=== PATIENT | female | born 1945 | race African-American/Black ===

== ENCOUNTER 2017-02-06 23:47 | Inpatient (IN) | payer MEDICARE, MEDICAID ==
[~2017-02-06] VITALS: Ht 175.3 cm; Wt 56.7 kg
[2017-02-07] MEDS ORDERED: ONDANSETRON HCL 4MG/2ML VIAL IV STA (00:23)
[2017-02-07] MEDS ORDERED: AZITHROMYCIN 500 MG in DEXT 5% WATER 250 ML IV ONE (00:30)
[2017-02-07] MEDS ORDERED: SODIUM CHLORIDE 0.9% 1000ML BAG (SEPSIS BOLUS) IV ONE (00:30)
[2017-02-07] MEDS ORDERED: CEFTRIAXONE 1 G PREMIX 50 ML IV ONE (00:30)
[2017-02-07 00:48] LABS: BASOPHILS % 0.5 % (0.0-2.0); EOSINOPHILS % 0.1 % (0.0-5.0); HEMOGLOBIN. 10.3 g/dL (12.0-16.0); MEAN CORPUSCULAR HEMOGLOBIN 32.3 pg (28.0-32.0); MEAN CORPUSCULAR VOLUME 94.5 fL (81.0-99.0); MEAN PLATELET VOLUME 7.1 fl (7.4-10.4); MONOCYTES % 7.6 % (2.0-8.0); NEUTROPHILS % 78.8 % (40.0-76.0); PLATELET 262 x1000/uL (130-400); RED BLOOD CELL COUNT 3.17 mill/uL (4.2-5.4)
[2017-02-07 00:58] LABS: BG BASE EXCESS 2.6 mmol/L (-2.0-2.0); BG CARBOXYHEMOGLOBIN 0.9 % (0.5-1.5); BG DEOXYHEMOGLOBIN 0.7 % (0.0-5.0); BG FRACTION INSPIRED OXYGEN 28; BG HCO3 ACT 25.7 mmol/L (22.0-26.0); BG METHEMOGLOBIN 0.1 % (0.0-1.5); BG OXYGEN SATURATION 99.3 % (92.0-98.5); BG OXYHEMOGLOBIN 98.3 % (94.0-97.0); BG PCO2 35.2 mmHg (35.0-45.0); BG PH 7.482 (7.350-7.450); BG PO2 158.5 mmHg (75.0-100.0); BG SAMPLE SITE RIGHT RADIAL; BG TOTAL HEMOGLOBIN 15.3 g/dL (12.0-18.0); BG VENT MODE NASAL CANNULA
[2017-02-07 01:00] LABS: CARBON DIOXIDE 28 mEq/L (21-32); CHLORIDE 103 mEq/L (98-107)
[2017-02-07 02:24] LABS: CLARITY URINE TURBID (CLEAR); COLOR URINE YELLOW (YELLOW); KETONES URINE TRACE (NEGATIVE); LEUKOCYTE ESTERASE URINE 3+ (NEGATIVE); NITRITE URINE POSITIVE (NEGATIVE); OCCULT BLOOD URINE 2+ (NEGATIVE); PH URINE 5.5 (4.5-8.0); PROTEIN URINE 2+ (NEGATIVE); SPECIFIC GRAVITY URINE 1.019 (1.005-1.030)
[2017-02-07] MEDS ORDERED: ACETAMINOPHEN 650MG SUPP PR ONE (02:45)
[2017-02-07] MEDS ORDERED: ATOR20TA65 PO (06:33)
[2017-02-07] MEDS ORDERED: AMLO2.5T45 PO (06:33)
[2017-02-07] MEDS ORDERED: ACET-2128 GT (06:33)
[2017-02-07] MEDS ORDERED: DIPH25TA24 GT (06:33)
[2017-02-07] MEDS ORDERED: BISA-81 RC (06:33)
[2017-02-07] MEDS ORDERED: SOD133EN RC (06:33)
[2017-02-07] MEDS ORDERED: LOV40 SQ (06:33)
[2017-02-07] MEDS ORDERED: MAGN800O GT (06:48)
[2017-02-07] MEDS ORDERED: METO-539 PO (06:48)
[2017-02-07] MEDS ORDERED: LORA1TAB GT (06:48)
[2017-02-07] MEDS ORDERED: PHEN100O2 GT (06:48)
[2017-02-07] MEDS ORDERED: MAGN400C GT (06:48)
[2017-02-07] MEDS ORDERED: POTA10TA15 GT (06:48)
[2017-02-07] MEDS ORDERED: SPIR25TA4 GT (06:48)
[2017-02-07] MEDS ORDERED: OR220 GT (06:48)
[2017-02-07] MEDS ORDERED: PANT40SU2 GT (06:48)
[2017-02-07] MEDS ORDERED: ASCO-339 GT (06:48)
[2017-02-07] MEDS ORDERED: SERT25TA74 PO (06:48)
[2017-02-07] MEDS ORDERED: IPRA3AMP IH (06:48)
[2017-02-07] MEDS ORDERED: CLONIDINE 0.1MG TABLET PO PRN (09:30)
[2017-02-07] MEDS: INSULIN LISPRO 100 UNITS/ML SUBCUT SCH ×3 (09:30→21:00)
[2017-02-07] MEDS ORDERED: NA PHOS,M-B/NA PHOS,DI-BA ENEMA 118ML PR PRN (09:30)
[2017-02-07] MEDS ORDERED: DOCUSATE SODIUM 100MG CAPSULE PO PRN (09:30)
[2017-02-07] MEDS ORDERED: ACETAMINOPHEN 650MG SUPP PR PRN (09:30)
[2017-02-07] MEDS ORDERED: IPRATROPIUM/ALBUTEROL 0.5-3(2.5)MG/3ML NEB INH PRN (09:30)
[2017-02-07] MEDS ORDERED: MAGNESIUM/ALUMINUM HYDROXIDE/SIMETHICONE 30ML UDC PO PRN (09:30)
[2017-02-07] MEDS ORDERED: ACETAMINOPHEN 325MG TABLET PO PRN (09:30)
[2017-02-07] MEDS ORDERED: ACETAMINOPHEN 650MG/20.3ML UDC GT PRN (09:30)
[2017-02-07] MEDS ORDERED: DEXTROSE 50% WATER 50ML SYRINGE IV PRN (09:30)
[2017-02-07] MEDS: DEXT 5%/0.9% NACL 1,000 ML IV SCH (10:12)
[2017-02-07] MEDS: BLOOD SUGAR DIAGNOSTIC STRIP TEST SCH ×3 (10:12→21:00)
[2017-02-07] MEDS: METOPROLOL TARTRATE 50MG TABLET PO SCH ×2 (12:00→21:00)
[2017-02-07] MEDS: SODIUM CHLORIDE 0.9% INJ 3ML FLUSH IVF SCH ×2 (13:41→22:58)
[2017-02-07] MEDS ORDERED: ACETAMINOPHEN 160MG/5ML UDC GT SCH (19:15)
[2017-02-07] MEDS ORDERED: IPRATROPIUM/ALBUTEROL 0.5-3(2.5)MG/3ML NEB NEB SCH (19:15)
[2017-02-07] MEDS ORDERED: BISACODYL 5MG TABLET PO PRN (19:15)
[2017-02-07] MEDS ORDERED: LORAZEPAM 1MG TABLET GT PRN (19:15)
[2017-02-07] MEDS: PHENYTOIN 100 MG/4 ML UDC GT SCH (19:54)
[2017-02-07] MEDS: AMPICILLIN SOD/SULBACTAM NA 3 G in SODIUM CHLORIDE 0.9% 100 ML IV SCH (19:54)
[2017-02-07] MEDS: ATORVASTATIN CALCIUM 20MG TABLET GT SCH (19:55)
[2017-02-07] MEDS: AMLODIPINE 5MG TABLET GT SCH (19:55)
[2017-02-07] MEDS: METOPROLOL TARTRATE 50MG TABLET GT SCH (19:56)
[2017-02-07] MEDS: SERTRALINE HCL 25MG TABLET GT SCH (19:56)
[2017-02-07] MEDS: IPRATROPIUM/ALBUTEROL 0.5-3(2.5)MG/3ML NEB HHN SCH ×2 (20:34→23:54)
[2017-02-07] MEDS ORDERED: ATORVASTATIN CALCIUM 20MG TABLET PO SCH (21:00)
[2017-02-08] MEDS: AMPICILLIN SOD/SULBACTAM NA 3 G in SODIUM CHLORIDE 0.9% 100 ML IV SCH ×4 (00:55→18:07)
[2017-02-08] MEDS: DEXT 5%/0.9% NACL 1,000 ML IV SCH ×4 (00:56→22:39)
[2017-02-08] MEDS: GUAIFENESIN-DM 200MG-20MG/10ML UDC PO PRN ×2 (01:38→18:52)
[2017-02-08] MEDS: IPRATROPIUM/ALBUTEROL 0.5-3(2.5)MG/3ML NEB HHN SCH ×5 (04:00→20:00)
[2017-02-08] MEDS: BLOOD SUGAR DIAGNOSTIC STRIP TEST SCH ×3 (06:21→18:06)
[2017-02-08 06:26] LABS: BASOPHILS % 0.3 % (0.0-2.0); EOSINOPHILS % 0.8 % (0.0-5.0); HEMATOCRIT. 27.9 % (36.0-48.0); HEMOGLOBIN. 9.6 g/dL (12.0-16.0); LYMPHOCYTES % 14.7 % (20.0-50.0); MEAN CORPUSCULAR HEMOGLOBIN 32.4 pg (28.0-32.0); MEAN CORPUSCULAR VOLUME 94.4 fL (81.0-99.0); MEAN PLATELET VOLUME 7.7 fl (7.4-10.4); MONOCYTES % 10.6 % (2.0-8.0); NEUTROPHILS % 73.6 % (40.0-76.0); PLATELET 208 x1000/uL (130-400); RED BLOOD CELL COUNT 2.96 mill/uL (4.2-5.4); RED CELL DISTRIBUTION WIDTH 12.9 % (11.6-14.6)
[2017-02-08] MEDS: PHENYTOIN 100 MG/4 ML UDC GT SCH ×2 (06:48→18:06)
[2017-02-08] MEDS: SODIUM CHLORIDE 0.9% INJ 3ML FLUSH IVF SCH ×3 (06:48→22:40)
[2017-02-08 06:50] LABS: CARBON DIOXIDE 26 mEq/L (21-32); CHLORIDE 105 mEq/L (98-107); HDL CHOLESTEROL 47 mg/dL (40-59); LDL CHOLESTEROL 76 mg/dL (5-100)
[2017-02-08] MEDS: INSULIN LISPRO 100 UNITS/ML SUBCUT SCH ×3 (07:50→17:50)
[2017-02-08] MEDS: METOPROLOL TARTRATE 50MG TABLET PO SCH ×2 (09:00→22:37)
[2017-02-08] MEDS: METOPROLOL TARTRATE 50MG TABLET GT SCH ×2 (09:00→17:00)
[2017-02-08 09:03] LABS: BG BASE EXCESS 0.5 mmol/L (-2.0-2.0); BG CARBOXYHEMOGLOBIN 0.1 % (0.5-1.5); BG DEOXYHEMOGLOBIN 2.1 % (0.0-5.0); BG FRACTION INSPIRED OXYGEN 28; BG HCO3 ACT 24.2 mmol/L (22.0-26.0); BG METHEMOGLOBIN 0.1 % (0.0-1.5); BG OXYGEN SATURATION 97.9 % (92.0-98.5); BG OXYHEMOGLOBIN 97.7 % (94.0-97.0); BG PCO2 35.3 mmHg (35.0-45.0); BG PH 7.454 (7.350-7.450); BG PO2 108.9 mmHg (75.0-100.0); BG SAMPLE SITE LEFT BRACHIAL; BG VENT MODE NASAL CANNULA
[2017-02-08] MEDS: SERTRALINE HCL 25MG TABLET GT SCH (09:58)
[2017-02-08] MEDS: AMLODIPINE 5MG TABLET GT SCH (09:59)
[2017-02-08] MEDS: ATORVASTATIN CALCIUM 20MG TABLET GT SCH (09:59)
[2017-02-09] MEDS: AMPICILLIN SOD/SULBACTAM NA 3 G in SODIUM CHLORIDE 0.9% 100 ML IV SCH ×2 (00:03→06:07)
[2017-02-09] MEDS: IPRATROPIUM/ALBUTEROL 0.5-3(2.5)MG/3ML NEB HHN SCH ×6 (00:10→20:52)
[2017-02-09] MEDS: SODIUM CHLORIDE 0.9% INJ 3ML FLUSH IVF SCH ×3 (06:07→21:16)
[2017-02-09] MEDS: PHENYTOIN 100 MG/4 ML UDC GT SCH (06:10)
[2017-02-09] MEDS: METOPROLOL TARTRATE 50MG TABLET PO SCH ×2 (08:38→21:15)
[2017-02-09] MEDS: AMLODIPINE 5MG TABLET GT SCH (08:39)
[2017-02-09] MEDS: ATORVASTATIN CALCIUM 20MG TABLET GT SCH (08:39)
[2017-02-09] MEDS: SERTRALINE HCL 25MG TABLET GT SCH (08:39)
[2017-02-09] MEDS: METOPROLOL TARTRATE 50MG TABLET GT SCH (08:40)
[2017-02-09] MEDS ORDERED: LORAZEPAM 1MG TABLET PO PRN (09:15)
[2017-02-09] MEDS: PHENYTOIN 100 MG/4 ML UDC PO SCH ×2 (12:41→21:16)
[2017-02-09] MEDS: LEVOFLOXACIN 500MG PREMIX 100 ML IV SCH (12:41)
[2017-02-09] MEDS: DEXT 5%/0.9% NACL 1,000 ML IV SCH ×2 (19:38→23:03)
[2017-02-09] MEDS ORDERED: LEVO500T2 IV (21:43)
[2017-02-09 23:04] LABS: BASOPHILS % 0.3 % (0.0-2.0); EOSINOPHILS % 11.2 % (0.0-5.0); HEMATOCRIT. 30.7 % (36.0-48.0); HEMOGLOBIN. 10.4 g/dL (12.0-16.0); LYMPHOCYTES % 21.6 % (20.0-50.0); MEAN CORPUSCULAR HEMOGLOBIN 31.8 pg (28.0-32.0); MEAN CORPUSCULAR VOLUME 94.2 fL (81.0-99.0); MONOCYTES % 11.2 % (2.0-8.0); NEUTROPHILS % 55.7 % (40.0-76.0); PLATELET 268 x1000/uL (130-400); RED BLOOD CELL COUNT 3.26 mill/uL (4.2-5.4)
[2017-02-09 23:09] LABS: CARBON DIOXIDE 27 mEq/L (21-32); CHLORIDE 105 mEq/L (98-107)
[2017-02-10] MEDS: IPRATROPIUM/ALBUTEROL 0.5-3(2.5)MG/3ML NEB HHN SCH ×4 (04:00→12:00)
[2017-02-10] MEDS: SODIUM CHLORIDE 0.9% INJ 3ML FLUSH IVF SCH ×2 (06:33→12:46)
[2017-02-10] MEDS ORDERED: AMLODIPINE 5MG TABLET PO SCH (09:00)
[2017-02-10] MEDS ORDERED: ATORVASTATIN CALCIUM 20MG TABLET PO SCH (09:00)
[2017-02-10] MEDS ORDERED: SERTRALINE HCL 25MG TABLET PO SCH (09:00)
[2017-02-10] MEDS: PHENYTOIN 100 MG/4 ML UDC PO SCH (09:21)
[2017-02-10] MEDS: METOPROLOL TARTRATE 50MG TABLET PO SCH (09:23)
[2017-02-10] MEDS ORDERED: POTASSIUM CHLORIDE 20MEQ TABLET SR PO NR (10:45)
[2017-02-10] MEDS ORDERED: POTASSIUM CHLORIDE 20MEQ/PACKET PO NR (12:30)
[2017-02-10] MEDS: LEVOFLOXACIN 500MG PREMIX 100 ML IV SCH (12:46)
[2017-02-10] MEDS ORDERED: PHEN100C4 PO (12:47)
[2017-02-10 16:00] VITALS: BP 114/68
[2017-06-20] MEDS ORDERED: PHEN100C4 PO (10:33)
== END 2017-02-10 16:30 | DRG 871 ==
LOC: ER 23:54 → 6WST 02-07 02:22 → EDBEDREQTM 02-07 02:24 → EDBEDREQ 02-07 02:24 → ENRESERV 02-07 02:34
PROVIDERS: ADMIT Family Medicine; ATTEND Family Medicine
DX: A41.9 Sepsis, unspecified organism (principal); G93.41 Metabolic encephalopathy; I50.30 Unspecified diastolic (congestive) heart failure; N39.0 Urinary tract infection, site not specified; R47.01 Aphasia; G81.94 Hemiplegia, unspecified affecting left nondominant side; E44.0 Moderate protein-calorie malnutrition; B96.20 Unspecified Escherichia coli [E. coli] as the cause of diseases classified elsewhere; D64.9 Anemia, unspecified; E11.9 Type 2 diabetes mellitus without complications; E78.5 Hyperlipidemia, unspecified; E87.6 Hypokalemia; G40.909 Epilepsy, unspecified, not intractable, without status epilepticus; I11.0 Hypertensive heart disease with heart failure; J44.9 Chronic obstructive pulmonary disease, unspecified; K21.9 Gastro-esophageal reflux disease without esophagitis; M21.379 Foot drop, unspecified foot; R13.10 Dysphagia, unspecified; F32.9 Major depressive disorder, single episode, unspecified; G93.89 Other specified disorders of brain; M24.571 Contracture, right ankle; R74.0 Nonspecific elevation of levels of transaminase and lactic acid dehydrogenase [LDH]; R47.1 Dysarthria and anarthria; L89.159 Pressure ulcer of sacral region, unspecified stage; Z86.011 Personal history of benign neoplasm of the brain; Z86.718 Personal history of other venous thrombosis and embolism; Z86.73 Personal history of transient ischemic attack (TIA), and cerebral infarction without residual deficits; Z93.0 Tracheostomy status; Z93.1 Gastrostomy status; Z79.899 Other long term (current) drug therapy
CPT/HCPCS: 36415; 36600; 70450; 71010; 80053; 80061; 80185; 81001; 82375; 82805; 82962; 83605; 83735; 85025; 87040; 87077; 87086; 87186; 92523; 92610; 93005; 93970; 94640; 96365; 96366; 96367; 96375; 97112; 97162; 97166; 99285; A6261; C1893; J0295; J0456; J0696; J1815; J1956; J2405; J7030; J7042; J7050; J7060; J7620

== ENCOUNTER 2017-08-02 20:30 | Emergency (ER) | payer MEDICARE, MEDICAID ==
[~2017-08-02] VITALS: Ht 172.7 cm; Wt 73.0 kg
[~2017-08-02 20:30] MED LIST: ACET-2128 GT; AMLO2.5T45 PO; ASCO-339 GT; ATOR20TA65 PO; BISA-81 RC; DIPH25TA24 GT; METO-539 PO; PHEN100C4 PO; SERT25TA74 PO
[2017-08-03 00:19] LABS: CHLORIDE 107 mEq/L (98-107)
[2017-08-03 00:24] LABS: CARBON DIOXIDE 27 mEq/L (21-32)
[2017-08-03 02:33] VITALS: BP 122/76
== END 2017-08-03 02:35 | disposition home or self-care (01) ==
LOC: ER 20:30
DX: M62.838 Other muscle spasm (principal); G25.3 Myoclonus; Z86.011 Personal history of benign neoplasm of the brain
CPT/HCPCS: 36415; 70450; 71020; 80048; 83735; 99285

== ENCOUNTER → 2018-04-08 | Outpatient (CLI) | payer MEDICARE | END | disposition home or self-care (01) | LOC: CARD 10:13 | PROVIDERS: ATTEND Psychiatry & Neurology Neurology | DX: R26.1 Paralytic gait (principal); Z98.890 Other specified postprocedural states; I10 Essential (primary) hypertension; Z79.899 Other long term (current) drug therapy ==

== ENCOUNTER 2022-06-29 12:10 | Emergency (ER) | payer MEDICARE, MEDICAID ==
[~2022-06-29] VITALS: Ht 175.3 cm; Wt 64.0 kg
[2022-06-29 13:14] VITALS: BP 143/80
[2022-06-29] MEDS ORDERED: ACETAMINOPHEN 325MG TABLET PO STA (16:09)
[2022-06-29] MEDS ORDERED: ACET-2708 PO (17:43)
== END 2022-06-29 18:05 | disposition home or self-care (01) ==
LOC: ER 12:10
DX: S70.02XA Contusion of left hip, initial encounter (principal); W18.30XA Fall on same level, unspecified, initial encounter; Y93.89 Activity, other specified; Y92.89 Other specified places as the place of occurrence of the external cause; Y99.8 Other external cause status
CPT/HCPCS: 73502; 99283

== ENCOUNTER 2022-09-06 07:20 | Inpatient (IN) | payer MEDICARE, MEDICAID ==
[~2022-09-06] VITALS: Ht 342.9 cm; Wt 56.7 kg
[~2022-09-06 07:20] MED LIST changes: +ACET-2708 PO
[2022-09-06] MEDS ORDERED: PANTOPRAZOLE SODIUM 40 MG/VIAL IV STA (08:32)
[2022-09-06] MEDS ORDERED: SODIUM CHLORIDE 0.9% 500 ML IV ONE (08:45)
[2022-09-06 09:05] LABS: BASOPHILS % 0.6 % (0.0-2.0); EOSINOPHILS % 0.7 % (0.0-5.0); HEMATOCRIT. 39.5 % (36.0-48.0); HEMOGLOBIN. 13.1 g/dL (12.0-16.0); LYMPHOCYTES % 27.4 % (20.0-50.0); MEAN CORPUSCULAR HEMOGLOBIN 31.3 pg (28.0-32.0); MEAN CORPUSCULAR VOLUME 93.9 fL (81.0-99.0); MONOCYTES % 6.4 % (2.0-8.0); NEUTROPHILS % 64.9 % (40.0-76.0); PLATELET 233 x1000/uL (130-400); RED BLOOD CELL COUNT 4.21 mill/uL (4.2-5.4); RED CELL DISTRIBUTION WIDTH 13.7 % (11.6-14.6)
[2022-09-06 09:10] LABS: CHLORIDE 110 mEq/L (98-107)
[2022-09-06 09:12] LABS: PROTHROMBIN TIME 10.6 sec (9.6-11.0)
[2022-09-06 10:50] LABS: CLARITY URINE CLOUDY (CLEAR); COLOR URINE YELLOW (YELLOW); KETONES URINE NEGATIVE (NEGATIVE); LEUKOCYTE ESTERASE URINE TRACE (NEGATIVE); NITRITE URINE POSITIVE (NEGATIVE); OCCULT BLOOD URINE NEGATIVE (NEGATIVE); PH URINE 8.5 (4.5-8.0); PROTEIN URINE NEGATIVE (NEGATIVE); SPECIFIC GRAVITY URINE 1.008 (1.005-1.030); UROBILINOGEN URINE 0.2 E.U./dL (0.2-1.0)
[2022-09-06] MEDS ORDERED: ONDANSETRON HCL 4MG/2ML INJ IV PRN (11:00)
[2022-09-06] MEDS ORDERED: ACETAMINOPHEN 325MG TABLET PO PRN ×2 (11:00)
[2022-09-06] MEDS ORDERED: DOCUSATE SODIUM 100MG CAPSULE PO PRN (11:00)
[2022-09-06] MEDS ORDERED: CLONIDINE 0.1MG TABLET PO PRN (11:00)
[2022-09-06] MEDS ORDERED: HYDROCODONE/ACETAMINOPHEN 5/325MG TABLET PO PRN (11:00)
[2022-09-06] MEDS ORDERED: GUAIFENESIN 200MG/10ML SUGAR FREE UDC PO PRN (11:00)
[2022-09-06] MEDS ORDERED: IPRATROPIUM/ALBUTEROL 0.5-3(2.5)MG/3ML NEB NEB PRN (11:00)
[2022-09-06] MEDS ORDERED: MAGNESIUM/ALUMINUM HYDROXIDE/SIMETHICONE 30ML UDC PO PRN (11:00)
[2022-09-06] MEDS ORDERED: NALOXONE HCL 0.4MG/ML VIAL IV PRN (11:15)
[2022-09-06 12:00] VITALS: BP 150/60
[2022-09-06] MEDS ORDERED: IPRATROPIUM BROMIDE (0.02%) 0.5MG/2.5ML NEB HHN PRN (13:30)
[2022-09-06] MEDS ORDERED: ALBUTEROL (0.083%) 2.5MG/3ML NEB HHN PRN (13:30)
[2022-09-06] MEDS ORDERED: NA PHOS,M-B/NA PHOS,DI-BA ENEMA 118ML PR NR (14:00)
[2022-09-06 14:44] LABS: TOTAL IRON BINDING CAPACITY 336 ug/dL (250-450)
[2022-09-06 15:08] LABS: VITAMIN B12 SERUM 827 pg/mL (211-911)
[2022-09-06 15:25] LABS: FERRITIN 81 ng/mL (10-291)
[2022-09-06 16:00] VITALS: BP 136/76
[2022-09-06 17:02] VITALS: BP 150/60
[2022-09-06] MEDS: SODIUM CHLORIDE 0.45% 1,000 ML IV SCH (18:39)
[2022-09-06 20:00] VITALS: BP 164/80
[2022-09-07] VITALS: BP 160/73
[2022-09-07 04:00] VITALS: BP 151/80
[2022-09-07] MEDS: SODIUM CHLORIDE 0.45% 1,000 ML IV SCH ×3 (04:37→23:23)
[2022-09-07] MEDS ORDERED: SORBITOL 70% SOLN 30ML PO NR (06:00)
[2022-09-07 06:28] LABS: BASOPHILS % 0.4 % (0.0-2.0); EOSINOPHILS % 1.1 % (0.0-5.0); HEMOGLOBIN. 12.9 g/dL (12.0-16.0); LYMPHOCYTES % 26.9 % (20.0-50.0); MEAN CORPUSCULAR HEMOGLOBIN 31.2 pg (28.0-32.0); MEAN CORPUSCULAR VOLUME 93.9 fL (81.0-99.0); MEAN PLATELET VOLUME 8.2 fl (7.4-10.4); MONOCYTES % 7.5 % (2.0-8.0); NEUTROPHILS % 64.1 % (40.0-76.0); PLATELET 217 x1000/uL (130-400); RED BLOOD CELL COUNT 4.15 mill/uL (4.2-5.4); RED CELL DISTRIBUTION WIDTH 13.8 % (11.6-14.6)
[2022-09-07 07:38] LABS: CHLORIDE 109 mEq/L (98-107)
[2022-09-07 07:50] LABS: PHOSPHORUS 3.3 mg/dL (2.5-4.9); T4 FREE 1.13 ng/dL (0.76-1.46)
[2022-09-07 08:00] VITALS: BP 156/87
[2022-09-07] MEDS: ASCORBIC ACID 500 MG TABLET PO SCH ×2 (08:17→17:25)
[2022-09-07] MEDS: SERTRALINE HCL 25MG TABLET PO SCH (08:17)
[2022-09-07] MEDS: PHENYTOIN SODIUM EXTENDED 100MG CAPSULE PO SCH ×2 (08:17→17:25)
[2022-09-07] MEDS: METOPROLOL TARTRATE 50MG TABLET PO SCH ×2 (08:18→20:59)
[2022-09-07] MEDS: AMLODIPINE 2.5MG TABLET PO SCH (08:18)
[2022-09-07] MEDS: BISACODYL 10MG SUPP PR SCH (08:20)
[2022-09-07] MEDS: DOCUSATE SODIUM SUGAR FREE 100MG/10ML UDC NG SCH (08:20)
[2022-09-07] MEDS ORDERED: NA PHOS,M-B/NA PHOS,DI-BA ENEMA 118ML PR PRN (09:00)
[2022-09-07] MEDS ORDERED: IRON SUCROSE COMPLEX 100 MG/5 ML ML IV SCH (09:00)
[2022-09-07] MEDS ORDERED: MAGNESIUM HYDROXIDE 400MG/5ML 30ML UDC PO NR (09:00)
[2022-09-07] MEDS ORDERED: POTASSIUM CHLORIDE INJ 40 MEQ in DEXT 5% WATER 500 ML IV NR (11:00)
[2022-09-07 11:55] VITALS: BP 143/79
[2022-09-07 16:00] VITALS: BP 143/54
[2022-09-07] MEDS: IRON SUCROSE COMPLEX 100 MG/5 ML ML IV SCH (17:25)
[2022-09-07] MEDS: SENNOSIDES/DOCUSATE SOD 8.6/50MG TABLET PO SCH (21:00)
[2022-09-07] MEDS: ATORVASTATIN CALCIUM 20MG TABLET PO SCH (21:01)
[2022-09-08] VITALS: BP 130/62
[2022-09-08 04:00] VITALS: BP 157/82
[2022-09-08 08:00] VITALS: BP 138/66
[2022-09-08 08:11] LABS: BASOPHILS % 0.3 % (0.0-2.0); EOSINOPHILS % 1.6 % (0.0-5.0); HEMATOCRIT. 39.4 % (36.0-48.0); HEMOGLOBIN. 13.2 g/dL (12.0-16.0); LYMPHOCYTES % 20.1 % (20.0-50.0); MEAN CORPUSCULAR HEMOGLOBIN 31.2 pg (28.0-32.0); MEAN CORPUSCULAR VOLUME 93.3 fL (81.0-99.0); MEAN PLATELET VOLUME 7.9 fl (7.4-10.4); PLATELET 233 x1000/uL (130-400); RED BLOOD CELL COUNT 4.22 mill/uL (4.2-5.4); RED CELL DISTRIBUTION WIDTH 13.5 % (11.6-14.6)
[2022-09-08 08:21] LABS: CHLORIDE 109 mEq/L (98-107)
[2022-09-08] MEDS: DOCUSATE SODIUM SUGAR FREE 100MG/10ML UDC NG SCH (09:00)
[2022-09-08] MEDS: PHENYTOIN SODIUM EXTENDED 100MG CAPSULE PO SCH (09:00)
[2022-09-08] MEDS: ASCORBIC ACID 500 MG TABLET PO SCH ×2 (09:26→17:00)
[2022-09-08] MEDS: BISACODYL 10MG SUPP PR SCH (09:26)
[2022-09-08] MEDS: AMLODIPINE 2.5MG TABLET PO SCH (09:27)
[2022-09-08] MEDS: METOPROLOL TARTRATE 50MG TABLET PO SCH ×2 (09:27→20:31)
[2022-09-08] MEDS: SERTRALINE HCL 25MG TABLET PO SCH (09:28)
[2022-09-08] MEDS: SODIUM CHLORIDE 0.45% 1,000 ML IV SCH ×2 (10:30→20:30)
[2022-09-08 12:00] VITALS: BP 153/80
[2022-09-08] MEDS ORDERED: LORAZEPAM 2MG/ML CPJ IV PRN (13:30)
[2022-09-08 15:50] VITALS: BP 112/63
[2022-09-08] MEDS: IRON SUCROSE COMPLEX 100 MG/5 ML ML IV SCH (16:15)
[2022-09-08 20:00] VITALS: BP 120/65
[2022-09-08] MEDS: SENNOSIDES/DOCUSATE SOD 8.6/50MG TABLET PO SCH (20:30)
[2022-09-08] MEDS: ATORVASTATIN CALCIUM 20MG TABLET PO SCH (20:32)
[2022-09-09] VITALS: BP 140/78
[2022-09-09] MEDS: SODIUM CHLORIDE 0.45% 1,000 ML IV SCH ×2 (06:27→16:30)
[2022-09-09 06:59] LABS: BASOPHILS % 0.3 % (0.0-2.0); EOSINOPHILS % 3.1 % (0.0-5.0); HEMATOCRIT. 39.5 % (36.0-48.0); HEMOGLOBIN. 13.3 g/dL (12.0-16.0); LYMPHOCYTES % 26.6 % (20.0-50.0); MEAN CORPUSCULAR HEMOGLOBIN 31.4 pg (28.0-32.0); MEAN CORPUSCULAR VOLUME 93.5 fL (81.0-99.0); MEAN PLATELET VOLUME 8.1 fl (7.4-10.4); MONOCYTES % 8.4 % (2.0-8.0); NEUTROPHILS % 61.6 % (40.0-76.0); PLATELET 240 x1000/uL (130-400); RED BLOOD CELL COUNT 4.23 mill/uL (4.2-5.4); RED CELL DISTRIBUTION WIDTH 13.5 % (11.6-14.6)
[2022-09-09 07:45] LABS: CHLORIDE 108 mEq/L (98-107)
[2022-09-09 08:00] VITALS: BP 130/75
[2022-09-09] MEDS: BISACODYL 10MG SUPP PR SCH (09:00)
[2022-09-09] MEDS ORDERED: AMLODIPINE 5MG TABLET PO SCH (09:00)
[2022-09-09] MEDS ORDERED: LORAZEPAM 0.5MG TABLET PO SCH (09:15)
[2022-09-09] MEDS: SERTRALINE HCL 25MG TABLET PO SCH (09:20)
[2022-09-09] MEDS: METOPROLOL TARTRATE 50MG TABLET PO SCH (09:21)
[2022-09-09] MEDS: DOCUSATE SODIUM SUGAR FREE 100MG/10ML UDC NG SCH (09:29)
[2022-09-09] MEDS: ASCORBIC ACID 500 MG TABLET PO SCH ×2 (09:31→17:55)
[2022-09-09 12:00] VITALS: BP 137/69
[2022-09-09] MEDS ORDERED: BISACODYL 10MG SUPP PR SCH (13:00)
[2022-09-09] MEDS ORDERED: ASCO-339 GT (14:47)
[2022-09-09] MEDS ORDERED: SERT25TA74 PO (14:47)
[2022-09-09] MEDS ORDERED: METO-539 PO (14:47)
[2022-09-09] MEDS ORDERED: WHEA152P PO (14:47)
[2022-09-09] MEDS ORDERED: AMLO5TAB88 PO (14:47)
[2022-09-09] MEDS ORDERED: SENN1TAB35 PO (14:47)
[2022-09-09 16:00] VITALS: BP 114/55
== END 2022-09-09 18:47 | disposition home health service (06) | DRG 378 ==
LOC: ER 07:34 → 6EST 09:56 → EDBEDREQ 09:59 → EDBEDREQTM 09:59 → SUPCPDRO 10:26 → 6EST 11:12
PROVIDERS: ADMIT Internal Medicine; ATTEND Internal Medicine
PROC: 4A00X4Z Measurement of Central Nervous Electrical Activity, External Approach (ICD-10-PCS; principal; 2022-09-09)
DX: K62.5 Hemorrhage of anus and rectum (principal); N39.0 Urinary tract infection, site not specified; F32.A Depression, unspecified; I10 Essential (primary) hypertension; D64.9 Anemia, unspecified; K62.3 Rectal prolapse; K56.41 Fecal impaction; K57.90 Diverticulosis of intestine, part unspecified, without perforation or abscess without bleeding; E87.6 Hypokalemia; Z79.899 Other long term (current) drug therapy; Z99.3 Dependence on wheelchair; Z86.011 Personal history of benign neoplasm of the brain; Z85.841 Personal history of malignant neoplasm of brain
CPT/HCPCS: 36415; 72197; 74018; 74176; 76830; 76856; 80048; 80053; 81003; 82607; 82728; 82746; 83540; 83550; 83735; 84100; 84439; 84443; 85025; 85044; 95816; 99285; A6261; C1893; C9113; J2060; J3480; J7040; J7060

== ENCOUNTER → 2023-11-11 | Day surgery (SDC) | payer MEDICARE, MEDICAID ==
[~2023-11-11] VITALS: Ht 175.3 cm; Wt 59.0 kg
[~2023-11-11] MED LIST changes: -ACET-2128 GT; -ACET-2708 PO; -AMLO2.5T45 PO; -ASCO-339 GT; +ASPI-1497 PO; -ATOR20TA65 PO; +BACITRACIN 14GM TUBE TOP ONE; -BISA-81 RC; +BUPIVACAINE HCL/PF 0.5% (5MG/ML) 10ML ONE; +CEFAZOLIN SODIUM 1000MG/VIAL ONE; -DIPH25TA24 GT; +DOCU-138 PO; +ETOMIDATE 2MG/ML 10ML VIAL IV ONE; +FENTANYL CITRATE/PF 50MCG/ML 2ML VIAL ONE; +GLYCOPYRROLATE 0.2 MG/ML 2ML VIAL ONE; +HYDR-4001 PO; +HYDR25TA78 PO; +HYDROCODONE/ACETAMINOPHEN 5/325MG TABLET PO NR; +LABETALOL 5MG/ML SYR 20 MG/4 ML SYRINGE IV PRN; +LACTATED RINGERS 1,000 ML IV SCH; +LIDOCAINE HCL 1% 20ML VIAL (Pyxis) INJ ONE; +LIDOCAINE HCL/EPINEPHRINE 1%-EPI 1:100,000 20 ML VIAL ONE; +MAGN24002 PO; +MEPERIDINE HCL/PF 25MG/ML CPJ IV PRN; -METO-539 PO; +MIDAZOLAM HCL 2 MG/2 ML VIAL ONE; +NEOSTIGMINE METHYLSULFATE 1MG/ML 10 ML VIAL ONE; -PHEN100C4 PO; +POLY17PO43 PO; +ROCURONIUM BROMIDE 10MG/ML VIAL 5ML IV ONE; +SACC250C9 PO; +SENN-257 PO; -SERT25TA74 PO; +T3 PO; +TOPUD PO
[2023-11-11 12:39] VITALS: BP 147/90; PULSE 69; RESP 16
[2023-11-11] MEDS: HYDROMORPHONE HCL/PF 2MG/ML CPJ IV PRN (12:39)
[2023-11-11] MEDS: ONDANSETRON HCL 4MG/2ML INJ IV PRN (14:11)
== END | disposition home or self-care (01) ==
LOC: OR 09:13
PROVIDERS: ATTEND Specialist
DX: K64.8 Other hemorrhoids (principal); Z79.899 Other long term (current) drug therapy; Z98.890 Other specified postprocedural states; Z79.82 Long term (current) use of aspirin
CPT/HCPCS: 88304; 46947; J3010; J3490 ×6; J0690; J2250; J2710; J2405; J1170; A4217; Z7610 ×19; J7120